=== PATIENT | female | born 2005 | race Two or more races ===

== ENCOUNTER 2025-01-10 16:34 | Emergency (ER) | payer MEDICAID, SELFPAY ==
[2025-01-10 16:34] VITALS: BMI 24.3
[2025-01-10 16:45] VITALS: BP 112/70; PULSE 78; RESP 16; TEMP 36.7; O2SAT 99
--- NOTE | 2025-01-10 17:13 | EDNOTE_ITS ---
ED Abdominal Pain RME/HPI General Chief Complaint: Abdominal Pain Stated complaint: RLQ PAIN, R/O APPY Time seen by provider: 01/10/25 16:56 Arrival date/time: 01/10/25 16:34 RME / HPI RME / HPI narrative: 19-year-old female who is healthy presents to the ER complaining of right lower quadrant pain along with nausea since Tuesday. Patient is currently on her menstrual period and she is bleeding her typical amount. Denies any abnormal vaginal discharge, dyspareunia, diarrhea, fever, vomiting. Patient last ate at 1 PM. Related Data Previous Rx's ?Medication ?Instructions ?Recorded naproxen 500 mg tablet 500 mg PO BID PRN pain #14 t abs 01/10/25 Allergies Allergy/AdvReac Type Severity Reaction Status Date / Time No Known Allergies Allergy Verified 01/10/25 16:36 ED Exam Narrative Physical exam: Constitutional: Patient alert and oriented. Well appearing. No acute distress. Not toxic appearing. Head: Normocephalic, atraumatic. Eyes: Periorbital regions bilaterally normal to inspection. Conjunctiva clear bilaterally. Sclera anicteric bilaterally. Pupils equal, round, reactive to light bilaterally. Extraocular movements intact bilaterally. Mouth/Throat: Mucous membranes moist. No stridor or muffled voice. No trismus. Handling secretions without difficulty. Airway widely patent. Neck: Supple. Trachea midline. No JVD. No nuchal rigidity. Normal range of motion. Respiratory: Normal effort. No accessory muscle use or respiratory distress. Lungs clear to auscultation bilaterally without rhonchi, wheezes, or crackles. Cardiovascular: RRR. Normal S1/S2. No murmurs or rubs. Radial pulses intact bilaterally. Abdomen: Positive mild right lower quadrant tenderness to palpation soft. Non- distended. Non-tender throughout. No pulsatile mass. No guarding or rebound. Negative Fung?s sign. Negative McBurney?s point tenderness. Negative Rovsing?s. Back: No midline tenderness or step-offs. No CVA tenderness to palpation bilaterally. Upper Extremities: No gross deformities. Lower Extremities: No gross deformities. No edema or calf tenderness. Neuro: Speech normal. No gross motor or sensory deficits to upper or lower extremities bilaterally. GCS 15. CN II?XII grossly intact. Skin: Warm, dry, normal color. Psych: Normal affect. Cooperative. Normal insight. Course Quality Measures none Orders Category Date Time Status CT Screening NOW Care 01/10/25 17:[address] abdomen pelvis w con Stat Exams 01/10/25 17:14 Completed US pelvic complete Stat Exams 01/10/25 17:14 Completed CBC Stat Lab 01/10/25 17:38 Completed CMP [Comprehensive Metabolic Panel] Stat Lab 01/10/25 17:38 Completed HCG,Qualitative Serum Stat Lab 01/10/25 17:38 Completed Lipase Stat Lab 01/10/25 17:38 Completed Urinalysis Stat Lab 01/10/25 17:58 Completed Ketorolac Inj [Toradol Inj] Med 01/10/25 17:14 Discontinued 30 mg IM X1 ONE Ondansetron Odt [Zofran Odt] Med 01/10/25 17:14 Discontinued 4 mg PO X1 ONE Sodium Chloride 0.9% 1000 ml [Ns] 1,000 ml Med 01/10/25 17:14 Discontinued IV 999 mls/hr Vital Signs Vital signs: Vital Signs Temperature 98.1 F 01/10/25 16:45 Pulse Rate 78 01/10/25 16:45 Respiratory Rate 16 01/10/25 16:45 Blood Pressure 112/70 01/10/25 16:45 Pulse Oximetry (%) 99 01/10/25 16:45 Oxygen Delivery Method Room Air 01/10/25 16:45 Abdominal Pain MDM MDM Narrative MDM Narrative:: 19-year-old female who is currently menstruating who presents to the ER complaining of 6 days of right lower quadrant pain associate with nausea. MDM: Suspect ovarian cyst versus ovarian cyst rupture versus fibroids versus mittelschmerz versus abnormal or dysfunctional uterine bleeding. STD considered but less likely as patient denies vaginal discharge. Ovarian torsion considered; however, clinical suspicion remains low. Left ovary has mild prominence advised follow-up ultrasound in 3-6 months per radiology read however good flow to ovaries bilaterally and no acute pelvic abnormality noted. No secondary signs of torsion or acute pathology noted. CT abdomen and pelvis obtained to further evaluate; study demonstrates no acute intra-abdominal or pelvic pathology. Doubt tubo-ovarian abscess, salpingitis, or PID given no vaginal discharge, fever, dyspareunia, dyschezia, or high-risk sexual behavior. Doubt small bowel obstruction or volvulus as abdomen is soft, nondistended, and without peritoneal findings. Doubt mesenteric ischemia as patient is not a vasculopath, has no history of atrial fibrillation, and denies postprandial pain or blood in stool. Doubt strangulated or incarcerated hernia given absence of skin changes or irreducible mass. Doubt intra-abdominal inflammatory process such as appendi citis or diverticulitis given absence of fever, focal tenderness, or peritoneal signs. Serial abdominal exams remain benign without peritonitis. Patient tolerating oral intake, ambulating without difficulty, and appears clinically well. Discussed results and clinical course with patient. Advised strict return precautions for worsening pain, vomiting, fever, new bleeding, or any change in symptoms. Patient instructed to follow up with primary care provider or RESPIRATORY THERAPY MANAGER within 24?48 hours for re-evaluation and continued management. Urinalysis shows nonspecific findings that may represent early or mild infection; antibiotics may be started or deferred pending culture results. Patient advised to return for worsening urinary symptoms, fever, or flank pain. Patient data External records reviewed:: [facility] previous records Clinical information provided by:: patient Social determinants that could affect healthcare access:: none Patient has the following chronic illnesses:: As noted How is presenting disease/condition affected by chronic disease/condition?: no chronic disease Evaluation data The following diagnostics were reviewed and interpreted by me:: other (specify) Lab and/or radiology exams considered but not ordered:: Additional Labs and radiology considered, but not ordered as they were not clinically indicated at this time. Interpretation Summary: Left ovary has mild prominence advised follow-up ultrasound in several months per radiology read however good flow to ovaries bilaterally and no acute pelvic abnormality noted white blood cell count is normal at 7.7, hemoglobin is minimally low at 11.9 with mild anemia however platelets are within normal limits CMP without severe hyperbilirubinemia, transaminitis, acute renal failure or severe electrolyte derangement Lipase without severe elevation Urine is contaminated without bacteria, hCG hCG urine is negative Medications / Prescriptions Medications or Prescriptions considered but not ordered:: I considered prescription management (both outpatient prescriptions AND drug treatment in the ER) and decided that this was necessary and was prescribed as charted. Medication administrations:: Medication Administration History Discontinued Medications Sodium Chloride (Ns) 1,000 mls @ 999 mls/hr IV .Q1H1M ONE Stop: 01/10/25 18:14 Last Infusion: 01/10/25 20:50 Dose: Infused Documented By: Admin: 01/10/25 19:06 Dose: 999 mls/hr Documented By: Ketorolac Tromethamine (Ketorolac Inj 30 Mg/Ml Vial) 30 mg IM X1 ONE Stop: 01/10/25 17:15 Last Admin: 01/10/25 18:06 Dose: 30 mg Documented By: Ondansetron HCl (Ondansetron Odt 4 Mg Tabrap) 4 mg PO X1 ONE; Protocol Stop: 01/10/25 17:15 Last Admin: 01/10/25 18:06 Dose: 4 mg Documented By: As noted Consultations Consultation(s) initiated? (list below): No Diagnosis Differential diagnosis abdominal pain: abdominal pain, acute appendicitis and constipation Most likely diagnosis given after review of the tests above:: Abdominal pain of unclear etiology Admission Indicated Admission indicated?: not indicated Admission Request Was there a request for admission?: No Disposition Plan Disposition Plan: Discharge Discharge Attestation Discharge Attestation: The patient and all family members were given an opportunity to ask questions and understood the discharge instructions. Discharge instructions specifically effects, indications for sooner follow up or return to the emergency department, and the expected course of current diagnosis. Patient condition: Stable Discharge Plan Plan Patient Disposition: HOME (Self Care) Patient condition on transfer: Stable Prescriptions/Referrals Prescriptions/Med Rec: New naproxen 500 mg tablet 500 mg PO BID PRN (Reason: pain) Qty: 14 0RF Rx Instructions: take wtih food and 8 oz of water Referrals: No Primary/Family,Physician [Primary Care Provider] - In 1 week Problem List Clinical Impression: Abdominal pain, Abnormal finding on radiology exam Patient/Caregiver Discharge Instructions Education Materials: Abdominal Pain Additional Instructions: Follow up with your primary medical doctor and your RESPIRATORY THERAPY MANAGER doctor within 24 hours. Return to the Emergency Room immediately for any new, worsening, continuing symptoms or any concerns at all. Return to the Emergency Room within 24 hours if you are unable to follow up with your primary medical doctor and your RESPIRATORY THERAPY MANAGER doctor within 24 hours. Your left ovary was noted to be mildly enla rged compared to your right and it is recommended that you have a follow-up ultrasound in 3 months by the radiologist. Print Language: Slovak Stand Alone Forms: [facility] Award Info., Patient Portal Info Letter JOSELYN/LYN Supervising Physician JOSELYN/LYN Supervising Physician: Dr. Elizondo
--- NOTE | 2025-01-10 17:14 | XR_ITS ---
Examination: Pelvic ultrasound, transabdominal, complete Technique: Transabdominal ultrasound of the pelvis performed using grayscale imaging Date and time of exam: January 10, 2025, 1721 hours INDICATIONS: Right pelvic pain beginning 6 days ago FINDINGS: Uterus 6.7 cm no uterine mass or intrauterine gestation Endometrial stripe 0.8 cm Right ovary 3.6 cm arterial flow Left ovary 4.5 cm arterial flow IMPRESSION: No uterine mass or intrauterine gestation Prominent left ovary, recommend 3 to 6-month follow-up pelvic sonography
--- NOTE | 2025-01-10 17:14 | XR_ITS ---
Examination: CT abdomen with intravenous contrast CT pelvis with intravenous contrast 2-D coronal reconstructions 2-D sagittal reconstructions Date and time of exam: January 10, 2025,. 2002 hours CTDI: vol (mGy) 6.13 DLP: (mGycm) 325 Technique: Multiple axial sections of the abdomen and pelvis have been obtained. 64 slice high-resolution scanner used. 3 mm axial sections have been obtained, post intravenous injection 60 cc Isovue 370 2-D sagittal, coronal reconstructions obtained. Low dose protocols were performed. One or more of the following dose reduction techniques were used; automated exposure control, adjustment of the mA and/or KV according to patient size, use of iterative reconstruction technique. Findings: No focal liver or splenic lesions No gallstones No pancreatic or adrenal mass No renal or ureteral calculi, no hydronephrosis Aorta normal size No bowel obstruction Normal appendix No pelvic abscess No diverticulitis Left ovary is prominent, 4 cm No free fluid in the pelvis Contracted urinary bladder IMPRESSION: Normal appendix No renal or ureteral calculi, no hydronephrosis Enlarged left ovary, please see the pelvic sonogram report and recommendations today
[2025-01-10 17:48] LABS: Basophils # (Auto) 0.0 Thou/mm3 (0.0-0.2); Basophils % (Auto) 1 % (0-2.5); Eosinophils # (Auto) 0.0 Thou/mm3 (0.0-0.5); Eosinophils % (Auto) 1 % (0-10); Hematocrit 35.3 % (36.0-46.0); Hemoglobin 11.9 g/dL (12.0-16.0); Immature Granulocytes Auto 0.02 Thou/mm3 (0.00-0.00); Lymphocytes # (Auto) 2.2 Thou/mm3 (1.0-4.8); Lymphocytes % (Auto) 29 % (10-50); Mean Corpuscular HGB Conc 33.7 g/dl (31.0-37.0); Mean Corpuscular Hemoglobin 31.5 pg (25.0-35.0); Mean Corpuscular Volume 93 fL (80-100); Monocytes # (Auto) 0.7 Thou/mm3 (0.0-0.8); Monocytes % (Auto) 9 % (0-12); Neutrophils # (Auto) 4.7 Thou/mm3 (1.8-7.7); Neutrophils % (Auto) 61 % (37-80); Nucleated Red Blood Cell # 0.00 Thou/mm3 (0.00-0.00); Nucleated Red Blood Cell % 0 /100 WBC (0); Platelet Count 290 Thou/mm3 (140-440); RDW Standard Deviation 43.0 fL (36.4-46.3); Red Blood Count 3.78 Miln/mm3 (4.00-5.20); White Blood Count 7.7 Thou/mm3 (3.6-11.0)
[2025-01-10] MEDS: KETOROLAC INJ 30 MG/ML VIAL IM (18:06)
[2025-01-10] MEDS: ONDANSETRON ODT 4 MG TABRAP PO (18:06)
[2025-01-10 18:14] LABS: Alanine Aminotransferase 27 U/L (10-49); Albumin, Serum 4.7 gm/dL (3.5-5.0); Albumin/Globulin Ratio 2.0 (1.2-2.2); Alkaline Phosphatase 61 U/L (46-116); Anion Gap 7 (7-16); Aspartate Amino Transferase 26 U/L (0-34); BUN/Creatinine Ratio 18 Ratio (12-20); Bilirubin,Total 0.2 mg/dL (0.3-1.2); Blood Urea Nitrogen 14 mg/dL (9-23); Calcium 9.2 mg/dL (8.3-10.6); Calcium (Corrected) 9.2 mg/dL (8.5-10.1); Carbon Dioxide 28.9 mMol/L (20.0-31.0); Chloride 107 mMol/L (98-107); Creatinine (Component) 0.8 mg/dL (0.6-1.3); Estimated Creatinine Clearance 104.1 mL/min (>60); Globulin 2.3 gm/dL (2.3-3.5); Glucose 92 mg/dL (74-106); Lipase 34 U/L (12-53); Osmolality,Calculated 285 (275-295); Potassium 3.7 mMol/L (3.4-5.1); Sodium 143 mMol/L (136-145); Total Protein 7.0 gm/dL (5.7-8.2); eGFR > 60 See Note
[2025-01-10 18:17] LABS: HCG,Qualitative Serum Negative
[2025-01-10 18:22] LABS: Collection Type, Urine Pedi-Bag
[2025-01-10 18:30] LABS: Bilirubin,Urine Negative (Negative); Blood,Urine 2+ (Negative); Clarity,Urine Clear (Clear/Hazy); Color,Urine Lt-Yellow (Lt Yel-Yel); Glucose, Urine Negative (Negative); Ketones,Urine Negative (Negative); Leukocyte Esterase,Urine Negative (Negative); Nitrite,Urine Negative (Negative); PH,Urine 7.5 (5.0-7.0); Protein,Urine Negative (Neg - Trace); RBC,Urine 20 /hpf (0-3); Specific Gravity,Urine 1.019 (1.001-1.035); Squamous Epithelial Cell,Urine 16 /hpf (0-5); Urobilinogen,Urine Negative mg/dL (0.0-1.0); WBC,Urine 2 /hpf (0-5)
[2025-01-10] MEDS: SODIUM CHLORIDE 0.9% 1000 ML 1,000 ML 999 ML IV (19:06)
[2025-01-10 22:02] VITALS: RESP 16
== END 2025-01-10 22:03 | disposition home or self-care (01) ==
PROVIDERS: Physician Assistant; Emergency Provider Emergency Medicine
DX: N91.2 Amenorrhea, unspecified (principal); D64.9 Anemia, unspecified
CPT/HCPCS: 36415; 74177; 76856; 80053; 81001; 83690; 84703; 85025; 96360; 96361; 96372; 99284; A4649; J1885; J7030; Q0162; Q9967